=== PATIENT | male | born 1985 | race Caucasian/White ===

== ENCOUNTER 2024-09-17 21:11 | Emergency (ER) | payer BC, SELFPAY ==
[2024-09-17 21:15] VITALS: BP 152/98; PULSE 104; RESP 20; TEMP 36.8; O2SAT 98; BMI 41.6
[2024-09-17 21:48] LABS: IDNOW Serial# 08D9AD1C; Strep A Nucleic Acid Negative (Negative)
[2024-09-17 22:15] LABS: Influenza A PCR NEGATIVE (Negative); Influenza B PCR NEGATIVE (Negative); Resp Syncy Virus RNA Qual PCR NEGATIVE (Negative); SARS COV2 PCR INHOUSE NEGATIVE (Negative)
[2024-09-17 22:23] VITALS: BP 129/84; PULSE 100; RESP 18; TEMP 36.7; O2SAT 97
--- NOTE | 2024-09-17 22:44 | ED_ITS ---
HPI - URI/Sore Throat General Chief Complaint: Upper Respiratory Symptoms Stated Complaint: COUGHING, WHITE SPOTS IN BACK OF THROAT Time Seen by Provider: 09/17/24 21:49 Source: patient Mode of arrival: ambulatory Limitations: no limitations History of Present Illness ED Provider: HPI Narrative: Patient complaining of cough for last 2 weeks for last 3 days noticed a white spot in her tonsil area patient's for recently diagnosed with strep no fever no chills no rash Related Data Previous Rx's ?Medication ?Instructions ?Recorded albuterol sulfate 90 mcg/actuation 2 puff inhalation Q6H PRN 09/17/24 aerosol inhaler shortness of breath or wheezing #8.5 grams cefuroxime axetil 500 mg tablet 500 mg PO BID 10 days #20 tabs 09/17/24 prednisone 20 mg tablet 40 mg (2 x 20 mg) PO DAILY #10 tabs 09/17/24 Allergies Allergy/AdvReac Type Severity Reaction Status Date / Time No Known Allergies Allergy Verified 09/17/24 21:17 Review of Systems Review of Systems: Yes all other systems are reviewed and are negative FOR[facility]LY [facility] Social History Social History Advance Directives: No Advance Directives Information Provided: Yes Physical Exam Vital Signs: Vital Signs: Last Vital Signs Temp 98.1 F 09/17/24 22:57 Pulse 100 09/17/24 22:57 Resp 18 09/17/24 22:57 BP 129/84 09/17/24 22:57 Pulse Ox 97 09/17/24 22:57 O2 Del Method Room Air 09/17/24 22:57 BMI result Body Mass Index 41.6 Appearance: Alert. Oriented X3. No acute distress. Eyes: no pallor or icterus ENT: Pharynx erythematous with small foreign body been impacted in the left tonsil Oral Mucosa moist tympanic membrane intact no erythema, Neck: Normal inspection. Neck supple. CVS: Normal heart rate and rhythm. Pulses normal. Respiratory: No respiratory distress. Equal air entry bilateral, no wheezing/rales/rhonchi Abd: soft, not tender Skin: Skin warm and dry. Normal skin color. Normal skin turgor. Extremities: No lower extremity edema, no calf tenderness Neuro: Oriented X 3. Medications Administered Discontinued Medications Generic Name Dose Route Start Last Admin Trade Name Freq PRN Reason Stop Dose Admin Albuterol Sulfate 4 puff 09/17/24 22:39 09/17/24 22:47 Albuterol Sulfate 90 Mcg 8 Gm Inhaler INHALE 09/17/24 22:40 4 puff ONCE ONE Administration Cefuroxime Axetil 500 mg 09/17/24 22:39 09/17/24 22:47 Cefuroxime Axetil 500 Mg Tablet PO 09/17/24 22:40 500 mg ONCE ONE Administration Prednisone 40 mg 09/17/24 22:39 09/17/24 22:47 Prednisone 20 Mg Tablet PO 09/17/24 22:40 40 mg ONCE ONE Administration Medical Decision Making Medical Decision Making [facility] [place] Narrative: Patient has small stone in the left tonsillar area unable to remove it strep COVID flu negative will prescribe him antibiotics cough which is going on for last 2 weeks Lab Data [facility] [place] Lab Attestation statement: I reviewed the patient's lab results. Labs: Lab Results 09/17/24 Range/Units 21:31 Influenza Type A (PCR) NEGATIVE (Negative) Influenza Type B (PCR) NEGATIVE (Negative) RSV RNA Qual (PCR) NEGATIVE (Negative) SARS-CoV-2 RNA (RT-PCR) NEGATIVE (Negative) S. pyogenes GrpA JOHN Negative (Negative) Discharge Plan Discharge Clinical Impression: Bronchitis Patient Disposition: Home, Self-Care Instructions: Acute Bronchitis (ED) Additional Instructions: use inhaler antibiotics , and prednisone as prescribed follow with the PCP if not better Prescriptions: New prednisone 20 mg tablet 40 mg PO DAILY Qty: 10 0RF cefuroxime axetil 500 mg tablet 500 mg PO BID 10 Days Qty: 20 0RF albuterol sulfate 90 mcg/actuation HFA aerosol inhaler 2 puff inhalation Q6H PRN (Reason: shortness of breath or wheezing) Qty: 8.5 0RF Stand Alone Forms: Work/School Release Interventions: ED Discharge Assessment Last Done: 09/17/24 22:57 Discharge Date/Time: 09/17/24 22:58 Print Language: Albanian
[2024-09-17] MEDS: predniSONE 20 MG TABLET 40 MG PO (22:47)
[2024-09-17] MEDS: cefuroxime axetiL 500 MG TABLET PO (22:47)
[2024-09-17] MEDS: Albuterol Sulfate 90 MCG 8 GM INHALER 4 PUFF INHALE (22:47)
[2024-09-17 22:57] VITALS: BP 129/84; PULSE 100; RESP 18; TEMP 36.7; O2SAT 97
== END 2024-09-17 22:58 | disposition home or self-care (01) ==
PROVIDERS: Emergency Provider Internal Medicine
DX: J40 Bronchitis, not specified as acute or chronic (principal); R05.9 Cough, unspecified; Z03.818 Encounter for observation for suspected exposure to other biological agents ruled out
CPT/HCPCS: 0241U; 87651; 99283; 99284